=== PATIENT | female | born 1945 | race Caucasian/White ===

== ENCOUNTER → 2018-12-23 | Outpatient (CLI) | payer BC ==
[2018-11-06 11:00] VITALS: BP 125/63
[~2018-12-23] MED LIST: ACYC200C PO; AMLO5TAB10 PO; ASCO-78 PO; ASPI-630 PO; BENA1TAB7 PO; CARV25TA2 PO; CIPR250T30 PO; FERR325T58 PO; GLIM2TAB2 PO; GUAI600T47 PO; HYDR-2680 PO; HYDR-2765 PO; HYDR-3135 PO; LEVO250T25 PO; LEVO50TA5 PO; LISI-334 PO; LISI10TA2 PO; MAGN400T22 PO; MESA250C PO; METO-247 PO; MULT-237 PO; PANT40TA77 PO; PIOG15TA42 PO; SIMV20TA3 PO; SPIR100T4 PO; WARF-78 PO; WARF1TAB69 PO; WARF2TAB96 PO
--- NOTE | 2018-12-23 10:47 | RAD ---
Indication: Chronic nonhealing left calf ulcer, neck pain and swelling TECHNIQUE: Grayscale, color Doppler and spectral waveform images of the bilateral lower extremity arteries COMPARISON: None FINDINGS: Right leg: Biphasic waveforms in the [employer] with velocity of 303 cm/s suggesting moderate stenosis. Biphasic waveforms in the deep femoral artery with velocity of 283 cm/s suggesting moderate stenosis. Biphasic waveforms in the proximal SFA with velocity of 218 cm/s suggesting mild stenosis. Biphasic waveforms in the mid SFA with velocity of 137 cm/s. Biphasic waveforms in the distal SFA with velocity of 129 cm/s. Monophasic waveforms in the popliteal artery with velocity of 135 cm/s. Monophasic waveforms in the peroneal artery with velocity of 95 cm/s. Monophasic waveforms in the proximal LITHOSTRIPPER with velocity of 100 cm/s. Monophasic waveforms in the DEBRA with velocity of 77 cm/s. Biphasic waveforms in the distal LITHOSTRIPPER with velocity of 87 cm/s. Monophasic waveforms in the dorsalis pedis artery with velocity of 50 cm/s. Left leg: Biphasic waveforms in the [employer] with velocity of 251 cm/s suggesting moderate stenosis. Biphasic waveforms in the deep femoral artery with velocity of 152 cm/s suggesting mild stenosis. Biphasic waveforms in the proximal SFA with velocity of 252 cm/s suggesting moderate stenosis. Biphasic waveforms in the mid SFA with velocity of 168 cm/s suggesting mild stenosis. Monophasic waveforms in the distal SFA with velocity of 165 cm/s suggesting mild stenosis. Monophasic waveforms in the popliteal artery with velocity of 120 cm/s. Biphasic waveforms in the peroneal artery with velocity of 140 cm/s. Proximal LITHOSTRIPPER is not visualized. Biphasic waveforms in the DEBRA with velocity of 115 cm/s. Biphasic waveforms in the distal LITHOSTRIPPER with velocity of 68 cm/s. Triphasic waveforms in the dorsalis pedis artery with velocity of 116 cm/s. IMPRESSION: Limited exam due to body habitus. Conventional digital subtraction angiography may be of additional benefit. 1. Predominantly biphasic waveforms in the bilateral lower extremity arteries with increased velocities in the supra-popliteal arteries suggesting mild to moderate stenosis as described above. 2. Nonvisualization of proximal segment of the left posterior tibial artery which may be secondary to occlusion. Suboptimal visualization of distal segment with Doppler evidence suggesting blood flow. Electronically signed by: Manpreet Rodriguez DO (12/23/2018 10:44 AM) [facility]
--- NOTE | 2018-12-23 17:10 | RAD ---
Bilateral lower extremity venous reflux ultrasound. History: Chronic nonhealing left calf. Comparison: None. Procedure: Color flow Doppler, spectral Doppler analysis, and 2D images are obtained with and without patient performing Valsalva maneuver of the superficial veins of both lower extremities. Findings: Study is technically difficult due to patient body habitus. The right greater saphenous vein is only seen in the proximal and mid thigh. There is no reflux. The right lesser saphenous vein at the saphenopopliteal junction is not visualized. Portion seen does not demonstrate reflux. The left greater saphenous vein at the saphenofemoral junction diameter is 9 mm, reflux 2.6 seconds. In the proximal thigh diameter is 5 mm, reflux 2.2 seconds. Mid thigh diameter is 4 mm, reflux 1.7 seconds. Distal thigh diameter is 4 mm, reflux 1.1 seconds. The greater saphenous vein is not identified in the calf. No reflux of the left lesser saphenous vein is seen. Only a short segment of the proximal left lesser saphenous vein is visualized. IMPRESSION: 1. Right and left greater saphenous veins are not visualized in the calves. 2. The left greater saphenous vein demonstrates reflux. 3. No reflux of the right greater saphenous vein. 4. No reflux of lesser saphenous veins. Electronically signed by: Warren Beyer MD (12/23/2018 5:07 PM) [id number]
== END | disposition home or self-care (01) ==
LOC: US 08:08
PROVIDERS: ATTEND Emergency Medicine Undersea and Hyperbaric Medicine
DX: I87.313 Chronic venous hypertension (idiopathic) with ulcer of bilateral lower extremity (principal); L97.221 Non-pressure chronic ulcer of left calf limited to breakdown of skin
CPT/HCPCS: 93925; 93970